=== PATIENT | male | born 1970 | race Caucasian/White ===

== ENCOUNTER 2018-12-15 17:22 | Emergency (ER) | payer MEDICAID ==
[~2018-12-15] VITALS: Ht 154.9 cm; Wt 78.0 kg
[~2018-12-15 17:22] MED LIST: ATI.5 PO; CIPR500T4 PO; METR250T2 PO; ONDA-24 SL
[2018-12-15 17:33] VITALS: BP 131/55
--- NOTE | 2018-12-15 17:36 | NUR ---
WAIT AT [facility]. [id number].
--- NOTE | 2018-12-15 18:03 | NUR ---
PT AMB TO BED 1
--- NOTE | 2018-12-15 18:10 | NUR ---
PATIENT IS A 48 Y/O MALE WHO PRESENTS TO THE ED C/O R EYE PAIN. PER PT SYMPTOMS HAVE BEEN GOING ON X5 DAYS. PT DENIES ANY SPECIFIC TX/INJURY TO EYE. PT REPORTS 7/10 ACHING R EYE PAIN THAT DOES NOT RADIATE. NOTED REDNESS AND TEARING TO R EYE, PERRLA. PT DENIES CP, SOB, N/V/D. PT AWAKE AND ALERT, RR EVEN/UNLABORED. PT REPOSITIONED FOR COMFORT, BED IN LOWEST POSITION. ER MD DR. CASTREJON NOTIFIED. WILL CONTINUE TO MONITOR. NKA MED HX: DM, HTN
--- NOTE | 2018-12-15 19:25 | NUR ---
ASSUMED CARE. RECEIVED ALERT,NOT IN ACUTE DISTRESS. VERBALIZED RIGHT EYE PAIN (10/10),REDNESS,SWELLING X 5 DAYS. SEEN BY ER-MD.
--- NOTE | 2018-12-15 19:25 | NUR ---
PATIENT REPORT GIVEN TO WHITNEY TOLEDO. TRANSFER OF CARE AT THIS TIME.
[2018-12-15] MEDS ORDERED: KETOROLAC 60 MG/2 ML VIAL IM ONE (19:30)
--- NOTE | 2018-12-15 19:41 | NUR ---
TORADOL 60 MG IM GIVEN ORDERED FOR PAIN.
[2018-12-15] MEDS ORDERED: TIMOLOL OP 0.5% 5 ML BTL OP ONE (19:50)
[2018-12-15] MEDS ORDERED: acetaZOLAMIDE 250 MG TAB PO ONE (19:50)
[2018-12-15] MEDS ORDERED: PILOCARPINE 2% OP ONE (19:55)
--- NOTE | 2018-12-15 19:55 | NUR ---
TONOMETRY DONE BY . INTRAOCULAR PRESSURE=74 mmHG PER ER-. NEW ORDERS GIVEN.
--- NOTE | 2018-12-15 20:00 | NUR ---
PILOCARPINE OPHTHALMIC DROPS AND ACETAZOLAMIDE PO NOT AVAILABLE FROM [facility], ORDERED FROM ASTRONAUTICAL ENGINEER. TIMOPTIC OPHTHALMIC DROPS PLACED AT BEDSIDE PER MD'S REQUEST.
[2018-12-15] MEDS ORDERED: TETRACAINE HCL/PF 0.5% OPTH 4 ML BTL ONE (20:01)
--- NOTE | 2018-12-15 20:15 | NUR ---
BACK FROM CT SCAN. VERBALIZED MARKED IMPROVEMENT OF PAIN (3/10). STILL WAITING FOR MEDICATIONS.
--- NOTE | 2018-12-15 20:23 | NUR ---
PILOCARPINE OPHTHALMIC DROPS NOT AVAILABLE FROM PHARMACY PER LINUX SERVER ENGINEER JANUAR. SINGER MADE AWARE. ACETAZOLAMIDE 250 MG PO GIVEN ORDERED.
[2018-12-15] MEDS ORDERED: acetaZOLAMIDE 250 MG TAB ONE (20:27)
--- NOTE | 2018-12-15 20:45 | NUR ---
REPEAT TONOMETRY DONE BY MD. INTRAOCULAR PRESSURE=40 mmHG. PAIN IMPVED BUT NO IMPROVEMENT OF VISION.
--- NOTE | 2018-12-15 20:50 | NUR ---
MD BACK AT BEDSIDE TO RE-EVALUATE AND DISCUSS PLAN OF CARE WITH PT.
--- NOTE | 2018-12-15 20:58 | NUR ---
DISCHARGED STABLE AND IMPROVED. PRESCRIPTIONS,COPY OF CT REPORTS, LIST OF OPHTHALMOLOGY REFERRAL CLINICS, VERBAL AND WRITTEN AFTERCARE INSTRUCTIONS GIVEN. VERBALIZED UNDERSTANDING. LEFT AMBULATORY WITH STABLE GAIT.
[2018-12-15 21:20] VITALS: BP 147/93
== END 2018-12-15 20:58 | disposition home or self-care (01) ==
LOC: MED 17:22
DX: H40.211 Acute angle-closure glaucoma, right eye (principal); I10 Essential (primary) hypertension; E11.9 Type 2 diabetes mellitus without complications; Z79.2 Long term (current) use of antibiotics; Z79.899 Other long term (current) drug therapy
CPT/HCPCS: 70450; 70480; 96372; 99284; J1885

== ENCOUNTER 2022-10-05 06:25 | Emergency (ER) | payer OTHER, MEDICAID ==
[~2022-10-05] VITALS: Ht 154.9 cm; Wt 51.7 kg
[~2022-10-05 06:25] MED LIST changes: +METR-520 PO; -METR250T2 PO; +ONDA-188 SL; -ONDA-24 SL
[2022-10-05 06:29] VITALS: BP 119/66
--- NOTE | 2022-10-05 06:29 | NUR ---
PT [facility] BLS. TAKEN TO BED 3
--- NOTE | 2022-10-05 06:31 | NUR ---
Patient BIB by BLS from home. C/O RLQ abdominal pain x today. Per reported, patient had RLQ abdominal pain, nausea, vomiting and diarrhea this morning ~ one hour ETA. PMHx: DM, HTN, HLD, Heart problem, Glaucoma right eye, ESRD (Dialysis )
--- NOTE | 2022-10-05 06:45 | NUR ---
Dr. Cervantes examining patient.
[2022-10-05 07:00] LABS: HEMATOCRIT 46.4 % (36-52); HEMOGLOBIN 15.3 g/dL (12.0-18.0); MEAN CORPUSCULAR HEMOGLOBIN 29 pg (27-31); MEAN CORPUSCULAR HGB CONC 33 g/dL (33-37); MEAN CORPUSCULAR VOLUME 88.2 fL (80-94); PLATELET COUNT (AUTO) 230 K/uL (140-450); RED BLOOD CELL COUNT(AUTO) 5.26 MIL/uL (4.20-6.10); RED CELL DISTRIBUTION WIDTH 13.4 % (11.6-13.7)
[2022-10-05 07:03] LABS: WHITE BLOOD COUNT (AUTO) 26.9 K/uL (4.8-10.8)
--- NOTE | 2022-10-05 07:15 | NUR ---
Report given to TRE Coulter and endorse care of patient.
[2022-10-05 07:16] LABS: ALBUMIN 4.4 g/dL (3.4-5.0); CARBON DIOXIDE 32.2 mmol/L (21-32); POTASSIUM 4.2 mmol/L (3.5-5.1); TOTAL BILIRUBIN 0.6 mg/dL (0.0-1.0)
[2022-10-05 07:21] LABS: EOSINOPHILS % (MANUAL) 3 % (0-4); LYMPHOCYTES % (MANUAL) 9 % (20-46); MONOCYTES % (MANUAL) 4 % (5-12)
[2022-10-05 07:31] LABS: CREATININE 6.8 mg/dL (0.6-1.3)
--- NOTE | 2022-10-05 08:03 | NUR ---
PLANER CHAIN OFFBEARER WHEELED PATIENT TO CT SCAN ON [facility].
--- NOTE | 2022-10-05 08:13 | NUR ---
PATIENT RETURNED TO ROOM [address] SCAN.
--- NOTE | 2022-10-05 09:38 | NUR ---
X-Ray at bedside.
[2022-10-05] MEDS ORDERED: cefTRIAXone 1,000 MG VIAL ONE (11:06)
[2022-10-05] MEDS ORDERED: NACL 0.9% 500 ML IV ONE (11:25)
[2022-10-05] MEDS ORDERED: CIPR500T4 PO (13:17)
== END 2022-10-05 14:08 | disposition home or self-care (01) ==
LOC: MED 06:25
DX: A05.9 Bacterial foodborne intoxication, unspecified (principal); R10.31 Right lower quadrant pain; R11.2 Nausea with vomiting, unspecified; R19.7 Diarrhea, unspecified; E11.9 Type 2 diabetes mellitus without complications; I10 Essential (primary) hypertension; Z79.4 Long term (current) use of insulin; Z79.899 Other long term (current) drug therapy
CPT/HCPCS: 36415; 71045; 74176; 80053; 83605; 83690; 85025; 87040; 93005; 96365; 99285; J0696; Q0092

== ENCOUNTER 2023-04-13 09:35 | Emergency (ER) | payer OTHER, MEDICAID ==
[~2023-04-13] VITALS: Ht 154.9 cm; Wt 75.0 kg
[2023-04-13 09:53] VITALS: BP 139/89; PULSE 96; RESP 18; TEMP 98.2; O2SAT 99
[2023-04-13] MEDS ORDERED: LORazepam 0.5 MG TAB PO ONE (10:20)
[2023-04-13] MEDS ORDERED: METOCLOPRAMIDE 10 MG TAB PO ONE (10:20)
[2023-04-13 10:35] VITALS: O2SAT 99
[2023-04-13] MEDS ORDERED: SIME80TA41 PO (11:52)
[2023-04-13] MEDS ORDERED: METO-485 PO (11:52)
[2023-04-13] MEDS ORDERED: ATI.5 PO ×3 (11:52→11:56)
[2023-04-13 12:11] VITALS: BP 136/86; PULSE 93; RESP 17; TEMP 98.4; O2SAT 99
== END 2023-04-13 12:01 | disposition home or self-care (01) ==
LOC: MED 09:35
DX: F41.9 Anxiety disorder, unspecified (principal); R14.0 Abdominal distension (gaseous); R14.2 Eructation; E11.22 Type 2 diabetes mellitus with diabetic chronic kidney disease; I12.0 Hypertensive chronic kidney disease with stage 5 chronic kidney disease or end stage renal disease; N18.6 End stage renal disease; Z99.2 Dependence on renal dialysis; Z79.899 Other long term (current) drug therapy; Z79.2 Long term (current) use of antibiotics
CPT/HCPCS: 93005; 99284; J8597; Q0163

== ENCOUNTER 2023-05-27 20:31 | Emergency (ER) | payer OTHER ==
[~2023-05-27] VITALS: Ht 154.9 cm; Wt 74.8 kg
[~2023-05-27 20:31] MED LIST changes: +METO-485 PO; +SIME80TA41 PO
[2023-05-27 20:41] VITALS: BP 127/71; PULSE 99; RESP 18; TEMP 98.9; O2SAT 100
[2023-05-27] MEDS ORDERED: NACL 0.9% 500 ML IV ONE (22:55)
[2023-05-27] MEDS ORDERED: ONDANSETRON 4 MG/2 ML VIAL IVP ONE (22:55)
[2023-05-27] MEDS ORDERED: PENICILLIN G BENZATHINE L-A 1.2 MU/2 ML SYR IM ONE (22:55)
[2023-05-28 00:06] LABS: BASOPHILS # (AUTO) 0.1 K/uL (0.00-0.22); BASOPHILS % (AUTO) 0.4 % (0.0-2.0); HEMATOCRIT 41.1 % (36-52); HEMOGLOBIN 13.8 g/dL (12.0-18.0); LYMPHOCYTES % (AUTO) 13.2 % (20.5-51.1); MEAN CORPUSCULAR HEMOGLOBIN 30 pg (27-31); MEAN CORPUSCULAR HGB CONC 34 g/dL (33-37); MEAN CORPUSCULAR VOLUME 87.5 fL (80-94); MONOCYTES # (AUTO) 1.2 K/uL (0.8-1.0); MONOCYTES % (AUTO) 7.9 % (1.7-9.3); NEUTROPHILS # (AUTO) 12.1 K/uL (1.8-7.7); NEUTROPHILS % (AUTO) 78.5 % (42.2-75.2); PLATELET COUNT (AUTO) 258 K/uL (140-450); RED CELL DISTRIBUTION WIDTH 13.6 % (11.6-13.7); WHITE BLOOD COUNT (AUTO) 15.4 K/uL (4.8-10.8)
[2023-05-28 00:25] LABS: FLU A ANTIGEN negative (NEGATIVE)
[2023-05-28 00:26] LABS: ALBUMIN 3.5 g/dL (3.4-5.0); ANION GAP 14.8 (8-16); CALCIUM 9.2 mg/dL (8.5-10.1); CARBON DIOXIDE 32.9 mmol/L (21-32); FLU B ANTIGEN NEGATIVE (NEGATIVE); POTASSIUM 3.7 mmol/L (3.5-5.1); TOTAL BILIRUBIN 0.4 mg/dL (0.0-1.0); TOTAL PROTEIN, SERUM 9.3 g/dL (6.4-8.2)
[2023-05-28 00:28] LABS: CREATININE 7.5 mg/dL (0.6-1.3)
[2023-05-28] MEDS ORDERED: ONDA-188 SL (00:53)
[2023-05-28] MEDS ORDERED: HYDR25CA1 PO (00:53)
[2023-05-28 01:43] VITALS: BP 140/65; PULSE 88; RESP 16; TEMP 98.5; O2SAT 98
== END 2023-05-28 01:43 | disposition home or self-care (01) ==
LOC: MED 20:31
DX: R11.2 Nausea with vomiting, unspecified (principal); F41.9 Anxiety disorder, unspecified; D72.829 Elevated white blood cell count, unspecified; E87.8 Other disorders of electrolyte and fluid balance, not elsewhere classified; Z20.822 Contact with and (suspected) exposure to COVID-19; Z20.2 Contact with and (suspected) exposure to infections with a predominantly sexual mode of transmission; E11.22 Type 2 diabetes mellitus with diabetic chronic kidney disease; I12.0 Hypertensive chronic kidney disease with stage 5 chronic kidney disease or end stage renal disease; N18.6 End stage renal disease; Z99.2 Dependence on renal dialysis; Z79.899 Other long term (current) drug therapy; Z79.2 Long term (current) use of antibiotics
CPT/HCPCS: 36415; 80053; 83690; 85025; 87426; 87804; 96372; 96374; 99284; J0561; J2405; J7030

== ENCOUNTER 2023-08-24 00:05 | Emergency (ER) | payer OTHER ==
[~2023-08-24] VITALS: Ht 154.9 cm; Wt 76.8 kg
[~2023-08-24 00:05] MED LIST changes: +HYDR25CA1 PO
[2023-08-24 00:26] VITALS: BP 179/101; PULSE 102; RESP 24; TEMP 97.1; O2SAT 99
[2023-08-24] MEDS ORDERED: ONDANSETRON 4 MG/2 ML VIAL ONE (01:05)
[2023-08-24 01:09] VITALS: BP 167/101; RESP 23; TEMP 97.5
[2023-08-24] MEDS: ONDANSETRON 4 MG/2 ML VIAL IVP ONE (01:21)
[2023-08-24 01:31] VITALS: O2SAT 98
[2023-08-24 01:33] LABS: BASOPHILS # (AUTO) 0.1 K/uL (0.00-0.22); BASOPHILS % (AUTO) 0.5 % (0.0-2.0); EOSINOPHILS % (AUTO) 0.3 % (0.0-4.0); HEMATOCRIT 44.1 % (36-52); HEMOGLOBIN 14.5 g/dL (12.0-18.0); LYMPHOCYTES % (AUTO) 7.3 % (20.5-51.1); MEAN CORPUSCULAR HEMOGLOBIN 29 pg (27-31); MEAN CORPUSCULAR HGB CONC 33 g/dL (33-37); MEAN CORPUSCULAR VOLUME 89.3 fL (80-94); MONOCYTES # (AUTO) 0.4 K/uL (0.8-1.0); MONOCYTES % (AUTO) 2.5 % (1.7-9.3); NEUTROPHILS # (AUTO) 12.8 K/uL (1.8-7.7); NEUTROPHILS % (AUTO) 89.4 % (42.2-75.2); PLATELET COUNT (AUTO) 205 K/uL (140-450); RED BLOOD CELL COUNT(AUTO) 4.94 MIL/uL (4.20-6.10); WHITE BLOOD COUNT (AUTO) 14.3 K/uL (4.8-10.8)
[2023-08-24 01:44] LABS: FLU A ANTIGEN negative (NEGATIVE); FLU B ANTIGEN NEGATIVE (NEGATIVE)
[2023-08-24 01:49] VITALS: PULSE 97
[2023-08-24 01:50] LABS: ANION GAP 20.4 (8-16); CALCIUM 8.3 mg/dL (8.5-10.1); CARBON DIOXIDE 28.3 mmol/L (21-32); POTASSIUM 4.7 mmol/L (3.5-5.1)
[2023-08-24 01:58] LABS: CREATININE 7.9 mg/dL (0.6-1.3)
[2023-08-24 02:12] LABS: ALANINE AMINOTRANSFERASE 30 U/L (12-78); ALBUMIN 3.9 g/dL (3.4-5.0); ALKALINE PHOSPHATASE 103 U/L (50-136); ASPARTATE AMINOTRANSFERASE 31 U/L (15-37); BILIRUBIN,DIRECT 0.1 mg/dL (0.0-0.3); LIPASE 105 U/L (16-77); TOTAL BILIRUBIN 0.5 mg/dL (0.0-1.0); TOTAL PROTEIN, SERUM 8.5 g/dL (6.4-8.2)
[2023-08-24] MEDS: DICYCLOMINE 20 MG/2 ML VIAL IM ONE (02:58)
[2023-08-24] MEDS ORDERED: LOPE1TAB14 PO (03:49)
[2023-08-24] MEDS ORDERED: ONDA-188 SL (03:49)
== END 2023-08-24 04:05 | disposition home or self-care (01) ==
LOC: MED 00:05
DX: A08.4 Viral intestinal infection, unspecified (principal); I12.0 Hypertensive chronic kidney disease with stage 5 chronic kidney disease or end stage renal disease; N18.6 End stage renal disease; Z99.2 Dependence on renal dialysis; E11.22 Type 2 diabetes mellitus with diabetic chronic kidney disease; Z20.822 Contact with and (suspected) exposure to COVID-19; Z90.49 Acquired absence of other specified parts of digestive tract; Z86.79 Personal history of other diseases of the circulatory system; Z79.899 Other long term (current) drug therapy
CPT/HCPCS: 36415; 74022; 74176; 80048; 80076; 82948; 83690; 84484; 85025; 87426; 87804; 93005; 96372; 96374; 99285; J0500; J2405; Q0092

== ENCOUNTER 2024-01-30 16:34 | Inpatient (IN) | payer OTHER ==
[~2024-01-30] VITALS: Ht 154.9 cm; Wt 75.3 kg
[~2024-01-30 16:34] MED LIST changes: +LOPE1TAB14 PO
[2024-01-30 17:08] VITALS: BP 163/98; PULSE 56; RESP 18; TEMP 97.5; O2SAT 99
[2024-01-30] MEDS ORDERED: ONDANSETRON 4 MG/2 ML VIAL ONE (17:40)
[2024-01-30] MEDS: ONDANSETRON 4 MG/2 ML VIAL IVP ONE ×2 (17:47→19:00)
[2024-01-30 17:50] LABS: HEMOGLOBIN 15.5 g/dL (12.0-18.0); RED BLOOD CELL COUNT(AUTO) 5.46 MIL/uL (4.20-6.10)
[2024-01-30 18:03] LABS: ANION GAP 15.7 (8-16); CALCIUM 9.2 mg/dL (8.5-10.1); CARBON DIOXIDE 30.7 mmol/L (21-32); POTASSIUM 3.4 mmol/L (3.5-5.1)
[2024-01-30 18:09] LABS: ALBUMIN 4.1 g/dL (3.4-5.0); BILIRUBIN,DIRECT 0.2 mg/dL (0.0-0.3); TOTAL BILIRUBIN 0.8 mg/dL (0.0-1.0); TOTAL PROTEIN, SERUM 9.8 g/dL (6.4-8.2)
[2024-01-30 18:11] LABS: BASOPHILS # (AUTO) 0.1 K/uL (0.00-0.22); BASOPHILS % (AUTO) 0.6 % (0.0-2.0); EOSINOPHILS # (AUTO) 0.1 K/uL (0-0.4); EOSINOPHILS % (AUTO) 0.7 % (0.0-4.0); HEMATOCRIT 46.7 % (36-52); LYMPHOCYTES # (AUTO) 1.3 K/uL (2.0-11.5); MEAN CORPUSCULAR HEMOGLOBIN 29 pg (27-31); MEAN CORPUSCULAR HGB CONC 33 g/dL (33-37); MEAN CORPUSCULAR VOLUME 85.6 fL (80-94); MONOCYTES # (AUTO) 0.9 K/uL (0.8-1.0); MONOCYTES % (AUTO) 4.4 % (1.7-9.3); NEUTROPHILS # (AUTO) 17.2 K/uL (1.8-7.7); NEUTROPHILS % (AUTO) 87.5 % (42.2-75.2); PLATELET COUNT (AUTO) 264 K/uL (140-450); RED CELL DISTRIBUTION WIDTH 13.5 % (11.6-13.7); WHITE BLOOD COUNT (AUTO) 19.6 K/uL (4.8-10.8)
[2024-01-30 18:12] LABS: CREATININE 5.9 mg/dL (0.6-1.3); LYMPHOCYTES % (AUTO) 6.8 % (20.5-51.1)
[2024-01-30] MEDS: NACL 0.9% 1,000 ML IV ONE (18:48)
[2024-01-30] MEDS: MORPHINE SULFATE 4 MG/ML SYR IVP ONE ×2 (19:00→20:22)
[2024-01-30] MEDS ORDERED: ONDA-188 PO (19:52)
[2024-01-30] MEDS ORDERED: ALBUTEROL 0.083% 2.5 MG/3 ML NEBU INH PRN (22:25)
[2024-01-30] MEDS ORDERED: CLONIDINE HYDROCHLORIDE 0.1 MG TAB PO PRN (22:25)
[2024-01-30] MEDS ORDERED: LORazepam 2 MG/ML VIAL IVP PRN (22:25)
[2024-01-30] MEDS ORDERED: NACL 0.9% 1,000 ML IV SCH (22:25)
[2024-01-30] MEDS ORDERED: DEXTROSE 50% 50 ML SYR IVP PRN (22:40)
[2024-01-30] MEDS ORDERED: HYDR-1102 PO (23:03)
[2024-01-30] MEDS ORDERED: TIM.5OS OP (23:03)
[2024-01-30] MEDS ORDERED: XALOS OP (23:03)
[2024-01-30] MEDS ORDERED: DORZ10DR2 OP (23:03)
[2024-01-30] MEDS ORDERED: GLUXL5 PO (23:03)
[2024-01-30] MEDS ORDERED: AMLO10TA PO (23:03)
[2024-01-30] MEDS ORDERED: ATOR40TA PO (23:03)
[2024-01-30] MEDS ORDERED: PIOG15TA24 PO (23:03)
[2024-01-30] MEDS ORDERED: FURO-570 PO (23:03)
[2024-01-30] MEDS ORDERED: BRIM5SOL3 OP (23:03)
[2024-01-30] MEDS: BLOOD GLUCOSE MONITORING 1 DEV DEV FS SCH (23:15)
[2024-01-30] MEDS: INSULIN LISPRO SLIDING SCALE 100 UNITS/ML VIAL SUBQ PRN (23:20)
[2024-01-30 23:40] VITALS: PULSE 95; RESP 18; O2SAT 99
[2024-01-31] VITALS (7 sets, daily range): BP systolic 110–127; BP diastolic 66–77; PULSE 85–98; RESP 18; TEMP 97.2–98.5; O2SAT 97–100
[2024-01-31] MEDS: ONDANSETRON 4 MG/2 ML VIAL IVP PRN (00:02)
[2024-01-31] MEDS: HYDROcodone/APAP 5/325 MG 1 TAB TAB PO PRN (00:02)
[2024-01-31] MEDS: metroNIDAZOLE 500 MG/NS PREMIX 100 ML IV SCH (04:27)
[2024-01-31] MEDS: BLOOD GLUCOSE MONITORING 1 DEV DEV FS SCH (06:32)
[2024-01-31 06:40] LABS: BASOPHILS % (AUTO) 0.1 % (0.0-2.0); HEMATOCRIT 42.5 % (36-52); LYMPHOCYTES # (AUTO) 1.5 K/uL (2.0-11.5); LYMPHOCYTES % (AUTO) 5.6 % (20.5-51.1); MEAN CORPUSCULAR HEMOGLOBIN 28 pg (27-31); MEAN CORPUSCULAR HGB CONC 33 g/dL (33-37); MEAN CORPUSCULAR VOLUME 85.7 fL (80-94); MONOCYTES # (AUTO) 1.6 K/uL (0.8-1.0); MONOCYTES % (AUTO) 5.8 % (1.7-9.3); NEUTROPHILS # (AUTO) 24.1 K/uL (1.8-7.7); PLATELET COUNT (AUTO) 254 K/uL (140-450); RED BLOOD CELL COUNT(AUTO) 4.96 MIL/uL (4.20-6.10); RED CELL DISTRIBUTION WIDTH 13.4 % (11.6-13.7)
[2024-01-31 07:10] LABS: ANION GAP 15.2 (8-16); CALCIUM 8.7 mg/dL (8.5-10.1); CARBON DIOXIDE 31.2 mmol/L (21-32); POTASSIUM 3.4 mmol/L (3.5-5.1)
[2024-01-31 07:20] LABS: NEUTROPHILS % (AUTO) 88.5 % (42.2-75.2); WHITE BLOOD COUNT (AUTO) 27.2 K/uL (4.8-10.8)
[2024-01-31 07:29] LABS: CREATININE 6.6 mg/dL (0.6-1.3)
[2024-01-31] MEDS: LACTOBACILLUS RHAMNOSUS GG 1 EACH CAP PO SCH (08:30)
[2024-01-31] MEDS: PANTOPRAZOLE 40 MG INJ VIAL IVP SCH (09:11)
[2024-01-31] MEDS ORDERED: LORazepam 0.5 MG TAB PO SCH (10:40)
[2024-01-31] MEDS: POTASSIUM CHLORIDE 10 MEQ TABER PO SCH (11:16)
[2024-01-31] MEDS: hydrALAZINE 10 MG TAB PO SCH (12:24)
[2024-01-31] MEDS: FUROSEMIDE 40 MG TAB PO SCH (20:44)
[2024-01-31] MEDS: BRIMONIDINE TARTRATE 0.2% OP 5 ML BTL OP SCH (20:54)
[2024-01-31] MEDS: TIMOLOL OP 0.5% 5 ML BTL OP SCH (20:56)
[2024-01-31] MEDS: prednisoLONE 1% OP 5 ML BTL OP SCH (20:58)
[2024-01-31] MEDS: LATANOPROST 0.005% OP 2.5 ML BTL OP SCH (20:59)
[2024-01-31] MEDS ORDERED: NON-FORMULARY ITEM (Brimonidine Tartrate* (Alphagan P 0.1% Ophthalmic Soln*) 1 DROP) OP SCH (21:00)
[2024-01-31] MEDS ORDERED: BRIMONIDINE TARTRATE 0.2% OP 5 ML BTL OP SCH (21:00)
[2024-01-31] MEDS: ATORVASTATIN 20 MG TAB PO SCH (21:04)
[2024-02-01] VITALS (8 sets, daily range): BP systolic 105–142; BP diastolic 48–79; PULSE 85–102; RESP 16–18; TEMP 96.9–97.9; O2SAT 92–99
[2024-02-01] MEDS: MORPHINE SULFATE 2 MG/ML SYR IVP PRN (03:38)
[2024-02-01 06:59] LABS: BASOPHILS # (AUTO) 0.1 K/uL (0.00-0.22); BASOPHILS % (AUTO) 0.4 % (0.0-2.0); EOSINOPHILS # (AUTO) 0.1 K/uL (0-0.4); EOSINOPHILS % (AUTO) 0.7 % (0.0-4.0); HEMATOCRIT 42.4 % (36-52); HEMOGLOBIN 14.2 g/dL (12.0-18.0); MEAN CORPUSCULAR HEMOGLOBIN 29 pg (27-31); MEAN CORPUSCULAR HGB CONC 34 g/dL (33-37); MEAN CORPUSCULAR VOLUME 85.6 fL (80-94); MONOCYTES # (AUTO) 1.5 K/uL (0.8-1.0); MONOCYTES % (AUTO) 8.2 % (1.7-9.3); NEUTROPHILS # (AUTO) 14.4 K/uL (1.8-7.7); NEUTROPHILS % (AUTO) 79.7 % (42.2-75.2); PLATELET COUNT (AUTO) 228 K/uL (140-450); RED BLOOD CELL COUNT(AUTO) 4.95 MIL/uL (4.20-6.10); RED CELL DISTRIBUTION WIDTH 13.6 % (11.6-13.7)
[2024-02-01 07:05] LABS: ANION GAP 15.2 (8-16); CALCIUM 7.9 mg/dL (8.5-10.1); CARBON DIOXIDE 28.8 mmol/L (21-32)
[2024-02-01 07:31] LABS: CREATININE 8.2 mg/dL (0.6-1.3)
[2024-02-01] MEDS: amLODIPine 5 MG TAB PO SCH (08:44)
[2024-02-01] MEDS ORDERED: DORZOLAMIDE HCL OP SCH (09:00)
[2024-02-01] MEDS ORDERED: LATANOPROST 0.005% OP 2.5 ML BTL OP SCH (09:00)
[2024-02-01] MEDS: PIOGLITAZONE 15 MG TAB PO SCH (12:27)
[2024-02-01] MEDS: ACETAMINOPHEN 325 MG TAB PO PRN (17:35)
[2024-02-02] VITALS (7 sets, daily range): BP systolic 102–135; BP diastolic 66–84; PULSE 81–98; RESP 18–19; TEMP 97.4–98; O2SAT 81–100
[2024-02-02 07:14] LABS: BASOPHILS % (AUTO) 0.4 % (0.0-2.0); EOSINOPHILS # (AUTO) 0.2 K/uL (0-0.4); EOSINOPHILS % (AUTO) 1.2 % (0.0-4.0); HEMATOCRIT 38.1 % (36-52); HEMOGLOBIN 12.7 g/dL (12.0-18.0); LYMPHOCYTES # (AUTO) 1.4 K/uL (2.0-11.5); LYMPHOCYTES % (AUTO) 10.4 % (20.5-51.1); MEAN CORPUSCULAR HEMOGLOBIN 29 pg (27-31); MEAN CORPUSCULAR HGB CONC 33 g/dL (33-37); MEAN CORPUSCULAR VOLUME 85.4 fL (80-94); MONOCYTES # (AUTO) 1.4 K/uL (0.8-1.0); MONOCYTES % (AUTO) 10.1 % (1.7-9.3); NEUTROPHILS # (AUTO) 10.6 K/uL (1.8-7.7); NEUTROPHILS % (AUTO) 77.9 % (42.2-75.2); PLATELET COUNT (AUTO) 215 K/uL (140-450); RED BLOOD CELL COUNT(AUTO) 4.46 MIL/uL (4.20-6.10); WHITE BLOOD COUNT (AUTO) 13.6 K/uL (4.8-10.8)
[2024-02-02 07:34] LABS: ANION GAP 13.3 (8-16); CALCIUM 7.7 mg/dL (8.5-10.1); CARBON DIOXIDE 28.7 mmol/L (21-32)
[2024-02-02 07:49] LABS: CREATININE 6.1 mg/dL (0.6-1.3)
[2024-02-02 13:18] LABS: BLOOD, URINE TRACE-I (NEGATIVE); COLOR,URINE YELLOW (YELLOW); LEUKOCYTE ESTERASE ,URINE TRACE (NEGATIVE); NITRITE, URINE POSITIVE (NEGATIVE); PH,URINE 5.5 (5.0-9.0); PROTEIN,URINE 2+ (NEGATIVE); UGLUCOSE NEGATIVE (NEGATIVE); UROBILINOGEN,URINE 0.2 EU/dL (0.2 - 1)
[2024-02-02 13:23] LABS: APPEARANCE,URINE HAZY (CLEAR)
[2024-02-02 13:59] LABS: SQUAMOUS EPITHELIAL CELL,UR 0-3 (FEW) /LPF (0-3 (FEW))
[2024-02-02 14:00] LABS: BACTERIA,URINE 1+ /HPF (None Seen); RBC,URINE 0-5 /HPF (0-5); WBC,URINE 0-5 /HPF (0-5)
[2024-02-02 14:06] LABS: BILIRUBIN,URINE 1+ (NEGATIVE)
[2024-02-02 14:07] LABS: ICTOTEST NEGATIVE (NEGATIVE)
[2024-02-02 14:08] LABS: URINE AMORPHOUS URATE 1+ /HPF (None Seen)
[2024-02-02] MEDS: LOPERAMIDE 2 MG CAP PO SCH (16:56)
[2024-02-03] VITALS (7 sets, daily range): BP systolic 97–119; BP diastolic 55–71; PULSE 75–94; RESP 18; TEMP 97–97.9; O2SAT 92–99
[2024-02-03 06:46] LABS: BASOPHILS # (AUTO) 0.1 K/uL (0.00-0.22); BASOPHILS % (AUTO) 0.8 % (0.0-2.0); EOSINOPHILS # (AUTO) 0.3 K/uL (0-0.4); EOSINOPHILS % (AUTO) 2.6 % (0.0-4.0); HEMATOCRIT 38.5 % (36-52); HEMOGLOBIN 12.8 g/dL (12.0-18.0); LYMPHOCYTES # (AUTO) 1.4 K/uL (2.0-11.5); LYMPHOCYTES % (AUTO) 11.3 % (20.5-51.1); MEAN CORPUSCULAR HEMOGLOBIN 29 pg (27-31); MEAN CORPUSCULAR HGB CONC 33 g/dL (33-37); MEAN CORPUSCULAR VOLUME 86.2 fL (80-94); MONOCYTES # (AUTO) 1.3 K/uL (0.8-1.0); NEUTROPHILS # (AUTO) 9.6 K/uL (1.8-7.7); NEUTROPHILS % (AUTO) 75.3 % (42.2-75.2); PLATELET COUNT (AUTO) 234 K/uL (140-450); RED BLOOD CELL COUNT(AUTO) 4.47 MIL/uL (4.20-6.10); RED CELL DISTRIBUTION WIDTH 13.3 % (11.6-13.7); WHITE BLOOD COUNT (AUTO) 12.8 K/uL (4.8-10.8)
[2024-02-03 07:01] LABS: PHOSPHORUS 3.8 mg/dL (2.5-4.9)
[2024-02-03 07:06] LABS: ANION GAP 13.8 (8-16); CALCIUM 7.4 mg/dL (8.5-10.1); CARBON DIOXIDE 27.5 mmol/L (21-32); POTASSIUM 4.3 mmol/L (3.5-5.1)
[2024-02-03 07:09] LABS: CREATININE 7.7 mg/dL (0.6-1.3)
[2024-02-04 06:25] LABS: BASOPHILS # (AUTO) 0.1 K/uL (0.00-0.22); BASOPHILS % (AUTO) 0.5 % (0.0-2.0); EOSINOPHILS # (AUTO) 0.4 K/uL (0-0.4); EOSINOPHILS % (AUTO) 3.7 % (0.0-4.0); HEMATOCRIT 37.5 % (36-52); HEMOGLOBIN 12.4 g/dL (12.0-18.0); LYMPHOCYTES # (AUTO) 1.5 K/uL (2.0-11.5); LYMPHOCYTES % (AUTO) 13.2 % (20.5-51.1); MEAN CORPUSCULAR HEMOGLOBIN 29 pg (27-31); MEAN CORPUSCULAR HGB CONC 33 g/dL (33-37); MEAN CORPUSCULAR VOLUME 86.5 fL (80-94); MONOCYTES # (AUTO) 1.3 K/uL (0.8-1.0); MONOCYTES % (AUTO) 11.5 % (1.7-9.3); NEUTROPHILS % (AUTO) 71.1 % (42.2-75.2); PLATELET COUNT (AUTO) 257 K/uL (140-450); RED BLOOD CELL COUNT(AUTO) 4.33 MIL/uL (4.20-6.10); RED CELL DISTRIBUTION WIDTH 13.6 % (11.6-13.7); WHITE BLOOD COUNT (AUTO) 11.3 K/uL (4.8-10.8)
[2024-02-04 06:59] LABS: ALBUMIN 2.7 g/dL (3.4-5.0); ANION GAP 13.3 (8-16); CALCIUM 7.4 mg/dL (8.5-10.1); MAGNESIUM 2.1 mg/dL (1.8-2.4); PHOSPHORUS 3.8 mg/dL (2.5-4.9); POTASSIUM 4.3 mmol/L (3.5-5.1); TOTAL BILIRUBIN 0.4 mg/dL (0.0-1.0)
[2024-02-04 07:05] LABS: CREATININE 7.1 mg/dL (0.6-1.3)
[2024-02-04 07:48] VITALS: O2SAT 97
[2024-02-04 08:00] VITALS: BP 103/51; PULSE 82; RESP 18; TEMP 96.9; O2SAT 98
[2024-02-04] MEDS ORDERED: METR500S14 IV (10:24)
[2024-02-04] MEDS ORDERED: HYDR-1102 PO (10:24)
[2024-02-04 15:36] VITALS: BP 103/51; PULSE 82; RESP 18; TEMP 96.9
[2024-02-04] MEDS ORDERED: METR-435 PO (16:02)
== END 2024-02-04 16:45 | disposition home or self-care (01) | DRG 871 ==
LOC: MED 16:34 → MMU 22:30 → MTU 22:45
PROVIDERS: ADMIT Student in an Organized Health Care Education/Training Program; ATTEND Student in an Organized Health Care Education/Training Program
PROC: 5A1D70Z Performance of Urinary Filtration, Intermittent, Less than 6 Hours Per Day (ICD-10-PCS; 2024-02-01)
PROC: 5A1D70Z Performance of Urinary Filtration, Intermittent, Less than 6 Hours Per Day (ICD-10-PCS; principal; 2024-02-03)
PROC: 5A1D70Z Performance of Urinary Filtration, Intermittent, Less than 6 Hours Per Day (ICD-10-PCS; 2024-02-04)
DX: A41.9 Sepsis, unspecified organism (principal); N18.6 End stage renal disease; I13.2 Hypertensive heart and chronic kidney disease with heart failure and with stage 5 chronic kidney disease, or end stage renal disease; I50.32 Chronic diastolic (congestive) heart failure; A09 Infectious gastroenteritis and colitis, unspecified; Z20.822 Contact with and (suspected) exposure to COVID-19; E11.22 Type 2 diabetes mellitus with diabetic chronic kidney disease; E78.5 Hyperlipidemia, unspecified; Z99.2 Dependence on renal dialysis; Z79.899 Other long term (current) drug therapy
CPT/HCPCS: 36415; 71045; 74018; 80048; 80053; 80076; 81001; 82948; 83690; 83735; 84100; 85025; 87040; 87081; 87086; 90935; 96361; 96374; 96375; 96376; 97110; 97163-GP; 99285; J1815; J2270; J2405; J2470; J3490; Q0092